=== PATIENT | female | born 1965 | race Caucasian/White ===

== ENCOUNTER 2023-10-11 04:41 | Day surgery (SDC) | payer OTHER ==
[2023-10-03 12:46] VITALS: BMI 19.5
[2023-10-11] MEDS ORDERED: MIDAZOLAM HCL 2 MG/2 ML SINGLE DOSE VIAL ONE (12:57)
[2023-10-11] MEDS ORDERED: PROPOFOL 20 ML ONE (12:57)
[2023-10-11] MEDS ORDERED: LIDOCAINE HCL/PF 2% SDV 5ML VIAL ONE (12:57)
[2023-10-11] MEDS ORDERED: IBUPROFEN 400 MG TABLET (FP) PO PRN (13:06)
[2023-10-11] MEDS ORDERED: ACETAMINOPHEN 325 MG TABLET (FP) PO PRN (13:06)
[2023-10-11] MEDS: ceFAZolin SODIUM 1 GM VIAL IVPB ONE (13:27)
[2023-10-11] MEDS ORDERED: DEXAMETHASONE SOD PHOSPHATE 4 MG/1 ML VIAL ONE (13:27)
[2023-10-11] MEDS ORDERED: ceFAZolin SODIUM 1 GM VIAL ONE (13:27)
[2023-10-11] MEDS ORDERED: KETOROLAC TROMETHAMINE 30 MG/1 ML VIAL ONE (13:30)
[2023-10-11] MEDS ORDERED: ONDANSETRON 4 MG/2 ML VIAL ONE (13:30)
[2023-10-11] MEDS ORDERED: ONDANSETRON 4 MG/2 ML VIAL IVPUSH PRN (14:07)
[2023-10-11] MEDS ORDERED: oxyCODONE HCL 5 MG TABLET PO PRN ×2 (14:07)
[2023-10-11] MEDS ORDERED: PROMETHAZINE HCL 25 MG/1 ML VIAL IVPB PRN (14:07)
[2023-10-11] MEDS ORDERED: ACETAMINOPHEN 1000 MG/100 ML BAG IVPB ONE (14:08)
[2023-10-11] MEDS ORDERED: LACTATED RINGERS SOLUTION 1,000 ML IV SCH (14:15)
[2023-10-11] MEDS ORDERED: ACETAMINOPHEN INJECTION 100 ML IVPB ONE (14:19)
[2023-10-11] MEDS: ACETAMINOPHEN 1000 MG/100 ML BAG IVPB ONE (14:30)
[2023-10-11 15:16] VITALS: RESP 18
[2023-10-11 15:53] VITALS: BP 117/66; PULSE 58; TEMP 97.3
== END 2023-10-11 15:50 | disposition home or self-care (01) ==
LOC: JASU-SURG 04:41
PROVIDERS: ATTEND Obstetrics & Gynecology
PROC: 0UDB8ZX Extraction of Endometrium, Via Natural or Artificial Opening Endoscopic, Diagnostic (ICD-10-PCS; principal; 2023-10-11 13:00)
DX: N95.0 Postmenopausal bleeding (principal)
CPT/HCPCS: 88305-TC; 88341-TC; 88342-TC; 94760; J0131